=== PATIENT | male | born 2000 | race Caucasian/White ===

== ENCOUNTER 2023-08-10 10:51 | Outpatient (CLI) | payer OTHER, SELFPAY ==
--- NOTE | 2023-08-10 11:11 | XR_ITS ---
WS: [id number] HIPS BILATERAL TECHNIQUE: 4 views, AP and lateral CLINICAL INFORMATION: EVALUATE FOR BILATERAL CHRONIC HIP CONDITION COMPARISON: None. FINDINGS: Hips are normal in appearance. Normal proximal femurs and femoral necks. Normal pubic rami. Normal gu[place]ume [place] pelvis. Normal sacroiliac joints. XR/XR hip BI 3-4V wo/w pel [id number] IMPRESSION: Normal bilateral hips Tonnis classification LEFT: grade 0: normal radiographs Tonnis classification RIGHT: grade 0: normal radiographs
--- NOTE | 2023-08-10 11:11 | XR_ITS ---
WS: [id number] KNEE LEFT TECHNIQUE: 3 views of the left knee CLINICAL INFORMATION: EVALUATE CHRONIC KNEE CONDITION COMPARISON: None. FINDINGS: Left knee is normal in appearance. No evidence of acute fracture dislocation. No significant effusion . Patella is normal. XR/XR knee LT 3V* [id number] IMPRESSION: Normal left knee. Kellgren-Song Classification: grade 0 (none): definite absence of x-ray carmen nges of osteoarthritis
== END 2023-08-10 10:52 | disposition home or self-care (01) ==
PROVIDERS: Family Provider Nurse Practitioner Family; Visit Provider Registered Nurse Emergency
DX: M25.562 Pain in left knee (principal); M25.552 Pain in left hip; M25.551 Pain in right hip
CPT/HCPCS: 73522; 73562